=== PATIENT | male | born 1990 | race Caucasian/White ===

== ENCOUNTER 2023-12-29 00:55 | Emergency (ER) | payer BC ==
[~2023-12-29] VITALS: Ht 180.3 cm; Wt 94.0 kg
[2023-12-29 01:35] VITALS: BP 130/84; PULSE 113; RESP 18; TEMP 98.5; O2SAT 98
[2023-12-29] MEDS ORDERED: CEPH500C2 MT (02:31)
[2023-12-29] MEDS ORDERED: NAPR-681 MT (02:31)
[2023-12-29] MEDS ORDERED: SULF1TAB48 MT (02:31)
== END 2023-12-29 03:45 | disposition home or self-care (01) ==
LOC: ER 00:55
DX: L03.114 Cellulitis of left upper limb (principal); M10.9 Gout, unspecified; Z98.890 Other specified postprocedural states
CPT/HCPCS: 99283